=== PATIENT | female | born 1985 | race Caucasian/White ===

== ENCOUNTER 2017-05-15 20:47 | Emergency (ER) | payer MEDICAID ==
[~2017-05-15] VITALS: Ht 160 cm; Wt 75.0 kg
[~2017-05-15 20:47] MED LIST: GABA600T PO; HYDR-2374 PO; LAMO150 PO; PROM25TA10 PO
[2017-05-15 20:51] VITALS: BP 115/75; PULSE 77; RESP 16; TEMP 98.3; O2SAT 100
--- NOTE | 2017-05-15 21:59 | RADRPT ---
EXAM DATE/TIME: 05/15/2017 21:26 [facility] COMPARISON: No previous studies available for comparison. INDICATIONS : Cough, difficulty breathing for 3 days MEDICAL HISTORY : None. SURGICAL HISTORY : None. ENCOUNTER: Initial ACUITY: 3 days PAIN SCORE: 5/10 LOCATION: Right upper chest FINDINGS: PA and lateral views of the chest demonstrate the lungs to be symmetrically aerated without evidence of mass, infiltrate or effusion. The cardiomediastinal contours are unremarkable. Osseous structure s are intact. CONCLUSION: 1. No active disease. Mat Do MD on May 15, 2017 at 21:56 Board Certified Radiologist. This report was verified electronically.
--- NOTE | 2017-05-15 22:01 | PD ---
HPI Chief Complaint: Cold / Flu Symptoms Time Seen by Provider: 22:01 Travel History International Travel<30 days: No Contact w/Intl Traveler<30days: No Traveled to known affect area: No History of Present Illness HPI 31-year-old female resents emergency department for evaluation of cough and chest congestion. Patient symptoms started 3 weeks ago. Over the last 2-3 days , symptoms have gotten worse and settled in her chest. She reports a more coarse cough and shortness of breath. She states she's been unable to smoke or tobacco cigarettes is often because of this cough. Denies any significant chest pain. Denies any recent travel or history of PE or DVT. She denies any nausea vomiting. No fever or chills at this time. No other symptoms to report. PFSH Past Medical History Asthma: No Blood Disorders: No Anxiety: Yes Depression: No Heart Rhythm Problems: No Cancer: No Cardiovascular Problems: No High Cholesterol: No Chemotherapy: No Chest Pain: No Congestive Heart Failure: No COPD: No Cerebrovascular Accident: No Diabetes: No Endocrine: No Gastrointestinal Disorders: No Genitourinary: Yes (OCCASIONAL KIDNEY STONES) Headaches: No Immune Disorder: No Implanted Vascular Access Dvce: No Kidney Stones: Yes Musculoskeletal: No Neurologic: Yes (EPILEPTIC) Psychiatric: Yes Reproductive: No Respiratory: No Migraines: No Radiation Therapy: No Renal Failure: No Seizures: Yes Sleep Apnea: No Thyroid Disease: No Ulcer: Yes (EPILESPY) ?: Not : 7 Para: 2 Miscarriage: 1 Ectopic : Yes (3) Past Surgical History Other Surgery: Yes Social History Alcohol Use: No Tobacco Use: No Substance Use: No Allergies-Medications (Allergen,Severity, Reaction): Coded Allergies: *MDRO Multi-Drug Resistant Organism (Verified Adverse Reaction, Unknown, ) MRSA PCR Screen negative 08/04/14 and 09/01/14. Cleared per Infection Control Reported Meds & Prescriptions Reported Meds & Active Scripts Active Proair Hfa 8.5 GM Inh (Albuterol Sulfate) 90 Mcg/Act Aer 2 Puff INH Q4HR PRN 108 mcg/actuation Prednisone 50 Mg Tab 50 Mg PO DAILY 5 Days Zithromax Z-Anthony (Azithromycin) 250 Mg Dspk 250 Mg PO DIRECTED 500 MG (2 tabs) day 1, then 1 tab days 2-5. Reported Tramadol (Tramadol HCl) 50 Mg Tab 50 Mg PO Q6H PRN Lamictal (Lamotrigine) 150 Mg Tab 150 Mg PO BID Gabapentin 600 Mg Tab 600 Mg PO TID Review of Systems Except as stated in HPI: all other systems reviewed are Neg Physical Exam Narrative GENERAL: Well-nourished female patient in no acute distress. SKIN: Focused skin assessment warm/dry. HEAD: Atraumatic. Normocephalic. EYES: Pupils equal and round. No scleral icterus. No injection or drainage. ENT: No nasal bleeding or discharge. Mucous membranes pink and moist. NECK: Trachea midline. No JVD. CARDIOVASCULAR: Regular rate and rhythm. No murmur appreciated. RESPIRATORY: No accessory muscle use. Coarse but clear to cough. Breath sounds equal bilaterally. GASTROINTESTINAL: Abdomen soft, non-tender, nondistended. Hepatic and splenic margins not palpable. MUSCULOSKELETAL: No obvious deformities. No clubbing. No cyanosis. No edema. NEUROLOGICAL: Awake and alert. No obvious cranial nerve deficits. Motor grossly within normal limits. Normal speech. PSYCHIATRIC: Appropriate mood and affect; insight and judgment normal. Data Data Last Documented VS Vital Signs Date Time Temp Pulse Resp B/P (MAP) Pulse Ox O2 Delivery O2 Flow Rate FiO2 05/15/17 22:22 05/15/17 22:07 77 18 99 Room Air 05/15/17 20:51 98.3 Orders Orders Chest, Pa & Lat (05/15/17 ) Ed Discharge Order (05/15/17 22:07) MDM Medical Decision Making Medical Screen Exam Complete: Yes Emergency Medical Condition: Yes Medical Record Reviewed: Yes Differential Diagnosis Pneumonia versus influenza versus common cold versus bronchitis Narrative Course 31-year-old female presents to emergency department for evaluation. Patient has had cough and chest congestion now for 3 weeks that is progressively worsening. Her vital signs are stable here. She does have coarse breath sounds but this could be expected with long-standing tobacco smoking history. Due to the duration of her symptoms, patient will be started on azithromycin Z- Anthony. She is encouraged to follow-up with a primary care provider and return immediately with any acute worsening symptoms. Diagnosis Primary Impression: URI (upper respiratory infection) Qualified Codes: J06.9 - Acute upper respiratory infection, unspecified Referrals: Primary Care Physician Patient Instructions: General Instructions, Upper Respiratory Infection (ED) Departure Forms: Tests/Procedures, Work Release Enter return to work date: May 17, 2017 Additional Instructions: Humidified air may help to alleviate symptoms Follow up with a primary care provider Stop smoking tobacco cigarettes Return to ED with acute worsening of symptoms Med/Other Pt SpecificInfo: Prescription(s) given Scripts Albuterol 8.5 GM Inh (Proair Hfa 8.5 GM Inh) 90 Mcg/Act Aer 2 PUFF INH Q4HR Y for SHORTNESS OF BREATH, #1 INHALER 0 Refills 108 mcg/actuation Prov: Sil Ngo 05/15/17 Prednisone (Prednisone) 50 Mg Tab 50 MG PO DAILY for 5 Days, #5 TAB 0 Refills Prov: Sil Ngo 05/15/17 Azithromycin (Zithromax Z-Anthony) 250 Mg Dspk 250 MG PO DIRECTED for Infection, #1 DSPK 0 Refills 500 MG (2 tabs) day 1, then 1 tab days 2-5. Prov: Sil Ngo 05/15/17 Disposition: 01 DISCHARGE HOME Condition: Stable Sil Ngo May 15, 2017 22:01
[2017-05-15] MEDS ORDERED: TRAM50TA PO (22:05)
[2017-05-15 22:07] VITALS: PULSE 77; RESP 18; O2SAT 99
[2017-05-15] MEDS ORDERED: ZITHTAB PO (22:09)
[2017-05-15] MEDS ORDERED: PRED50 PO (22:09)
[2017-05-15] MEDS ORDERED: ALBUAER3 INH (22:09)
[2017-05-20] MEDS ORDERED: OXYC2.5T PO (11:42)
== END 2017-05-15 22:23 | disposition home or self-care (01) ==
LOC: NEPD 20:47
DX: J06.9 Acute upper respiratory infection, unspecified (principal); F41.9 Anxiety disorder, unspecified; G40.909 Epilepsy, unspecified, not intractable, without status epilepticus; Z79.899 Other long term (current) drug therapy
CPT/HCPCS: 71046; 99284

== ENCOUNTER 2017-05-23 20:14 | Emergency (ER) | payer MEDICAID ==
[~2017-05-23] VITALS: Ht 160 cm; Wt 75.0 kg
[~2017-05-23 20:14] MED LIST changes: +ALBUAER3 INH; -HYDR-2374 PO; +OXYC2.5T PO; +PRED50 PO; -PROM25TA10 PO; +TRAM50TA PO
[2017-05-23 20:15] VITALS: BP 113/86; PULSE 119; RESP 16; TEMP 98.3; O2SAT 97
[2017-05-24] MEDS ORDERED: LEVA500T33 PO (01:04)
--- NOTE | 2017-05-24 01:04 | PD ---
HPI Chief Complaint: Cold / Flu Symptoms Time Seen by Provider: 00:44 Travel History International Travel<30 days: No Contact w/Intl Traveler<30days: No Traveled to known affect area: No History of Present Illness HPI Patient is a 31-year-old female presents emergency department for evaluation of fever cough and congestion. She is a smoker, she states that she had finished a course of azithromycin and steroids for bronchitis and was not doing any better after that so she decided to come in and be seen. She also endorses some body aches which have been present for at least the past week, symptoms gradually worsening, not relieved by above medications, context a smoker, duration 7 days. PFSH Past Medical History Asthma: No Blood Disorders: No Anxiety: Yes Depression: No Heart Rhythm Problems: No Cancer: No Cardiovascular Problems: No High Cholesterol: No Chemotherapy: No Chest Pain: No Congestive Heart Failure: No COPD: No Cerebrovascular Accident: No Diabetes: No Endocrine: No Gastrointestinal Disorders: No Genitourinary: Yes (OCCASIONAL KIDNEY STONES) Headaches: No Immune Disorder: No Implanted Vascular Access Dvce: No Kidney Stones: Yes Musculoskeletal: No Neurologic: Yes (EPILEPTIC) Psychiatric: Yes Reproductive: No Respiratory: No Migraines: No Radiation Therapy: No Renal Failure: No Seizures: Yes Sleep Apnea: No Thyroid Disease: No Ulcer: Yes (EPILESPY) ?: Not LMP: "IT'S BEEN LIKE A YEAR" : 7 Para: 2 Miscarriage: 1 Ectopic : Yes (3) Tubal Ligation: Yes Past Surgical History Other Surgery: Yes (ureter stent placed, nephrostomy tube) Social History Alcohol Use: No Tobacco Use: Yes (1/2 PPD) Substance Use: No Allergies-Medications (Allergen,Severity, Reaction): Coded Allergies: *MDRO Multi-Drug Resistant Organism (Verified Adverse Reaction, Unknown, ) MRSA PCR Screen negative 08/04/14 and 09/01/14. Cleared per Infection Control Reported Meds & Prescriptions Reported Meds & Active Scripts Active Levaquin (Levofloxacin) 500 Mg Tablet 500 Mg PO DAILY 7 Days Oxycodon-Acetaminophen 2.5-325 (Oxycodone HCl/Acetaminophen) 2.5 Mg-325 Mg Tablet 5.325 Mg PO Q6HR PRN Proair Hfa 8.5 GM Inh (Albuterol Sulfate) 90 Mcg/Act Aer 2 Puff INH Q4HR PRN 108 mcg/actuation Prednisone 50 Mg Tab 50 Mg PO DAILY 5 Days Reported Tramadol (Tramadol HCl) 50 Mg Tab 50 Mg PO Q6H PRN Lamictal (Lamotrigine) 150 Mg Tab 150 Mg PO BID Gabapentin 600 Mg Tab 600 Mg PO TID Review of Systems Except as stated in HPI: all other systems reviewed are Neg Physical Exam Narrative GENERAL: Well-developed well-nourished no obvious distress SKIN: Focused skin assessment warm/dry. HEAD: Atraumatic. Normocephalic. EYES: Pupils equal and round. No scleral icterus. No injection or drainage. ENT: No nasal bleeding or discharge. Mucous membranes pink and moist. TMs clear bilaterally, oropharynx clear moist NECK: Trachea midline. No JVD. CARDIOVASCULAR: Regular rate and rhythm. No murmur appreciated. RESPIRATORY: No accessory muscle use. Clear to auscultation. Breath sounds equal bilaterally. GASTROINTESTINAL: Abdomen soft, non-tender, nondistended. Hepatic and splenic margins not palpable. MUSCULOSKELETAL: No obvious deformities. No clubbing. No cyanosis. No edema. NEUROLOGICAL: Awake and alert. No obvious cranial nerve deficits. Motor grossly within normal limits. Normal speech. PSYCHIATRIC: Appropriate mood and affect; insight and judgment normal. Data Data Last Documented VS Vital Signs Date Time Temp Pulse Resp B/P (MAP) Pulse Ox O2 Delivery O2 Flow Rate FiO2 05/24/17 01:24 05/23/17 20:15 98.3 119 16 97 Room Air Orders Orders Ed Discharge Order (05/24/17 01:03) MDM Medical Decision Making Medical Screen Exam Complete: Yes Emergency Medical Condition: Yes Differential Diagnosis URI, pneumonia, influenza Narrative Course Patient room to the emergency department, she appears well and in no obvious distress, given smoking history we will start on empiric Levaquin and she states that she did have a small pneumonia on her last chest x-ray, offered repeat chest x-ray today and she declined. Discussed symptomatic management and return to be criteria. Discussed smoking cessation. She is stable for discharge Diagnosis Primary Impression: URI (upper respiratory infection) Med/Other Pt SpecificInfo: Prescription(s) given Scripts Levofloxacin (Levaquin) 500 Mg Tablet 500 MG PO DAILY for Infection for 7 Days, #7 TAB 0 Refills Prov: Reji Yang MD 05/24/17 Disposition: 01 DISCHARGE HOME Condition: Stable Reji Yang MD May 24, 2017 01:04
== END 2017-05-24 01:30 | disposition home or self-care (01) ==
LOC: NEPE 20:14
DX: J06.9 Acute upper respiratory infection, unspecified (principal); F41.9 Anxiety disorder, unspecified; G40.909 Epilepsy, unspecified, not intractable, without status epilepticus; F17.200 Nicotine dependence, unspecified, uncomplicated
CPT/HCPCS: 99283

== ENCOUNTER 2017-06-04 16:05 | Emergency (ER) | payer MEDICAID ==
[~2017-06-04] VITALS: Ht 160 cm; Wt 75.0 kg
[~2017-06-04 16:05] MED LIST changes: +LEVA500T33 PO
[2017-06-04 16:06] VITALS: BP 124/80; PULSE 92; RESP 18; TEMP 99; O2SAT 100
--- NOTE | 2017-06-04 16:51 | RADRPT ---
EXAM DATE/TIME: 06/04/2017 16:32 [facility] COMPARISON: No previous studies available for comparison. INDICATIONS : Right sided pain due to fall while having seizure. RADIATION DOSE: 36.27 CTDIvol (mGy) MEDICAL HISTORY : Seizures. SURGICAL HISTORY : Tubal ligation. ENCOUNTER: Initial ACUITY: 2 days PAIN SCALE: 5/10 LOCATION: Right cranial TECHNIQUE: Multiple contiguous axial images were obtained of the head. Using automated exposure control and adj ustment of the mA and/or kV according to patient size, radiation dose was kept as low as reasonably a chievable to obtain optimal diagnostic quality images. DICOM format image data is available electro nically for review and comparison. FINDINGS: CEREBRUM: The ventricles are normal for age. No evidence of midline shift, mass lesion, hemorrhage or acute in farction. No extra-axial fluid collections are seen. POSTERIOR FOSSA: The cerebellum and brainstem are intact. The 4th ventricle is midline. The cerebellopontine angle i s unremarkable. EXTRACRANIAL: The visualized portion of the orbits is intact. SKULL: The calvaria is intact. No evidence of skull fracture. CONCLUSION: Normal examination. Tylor Machado Jr., MD on June 04, 2017 at 16:48 Board Certified Radiologist. This report was verified electronically.
--- NOTE | 2017-06-04 16:52 | RADRPT ---
EXAM DATE/TIME: 06/04/2017 16:32 [facility] COMPARISON: No previous studies available for comparison. INDICATIONS : Right sided facial pain due to fall. RADIATION DOSE: 62.18 CTDIvol (mGy) MEDICAL HISTORY : Seizures. SURGICAL HISTORY : Tubal ligation. ENCOUNTER: Initial ACUITY: 2 days PAIN SCORE: 5/10 LOCATION: Right orbit and facial region. TECHNIQUE: Volumetric scanning of the facial bones was performed. Using automated exposure control and adjustme nt of the mA and/or kV according to patient size, radiation dose was kept as low as reasonably achiev able to obtain optimal diagnostic quality images. DICOM format image data is available electronicKindful y for review and comparison. FINDINGS: ORBITS: The orbital and infraorbital osseous structures are intact. The retroconal structures have a normal configuration. No radiopaque foreign bodies are seen. NASAL BONE: The nasal bone and maxillary spine are intact ZYGOMATIC ARCHES: Symmetric without evidence of fracture. SINUSES: The maxillary, ethmoid and frontal sinuses are intact. No air-fluid levels seen. NASAL CAVITY: The nasal septum is intact and midline. The lacrimal ducts are intact. SOFT TISSUES: No radiopaque foreign bodies seen. No soft-tissue swelling is seen. INTRACRANIAL: No intracranial air seen. CRIBIFORM PLATE: Grossly intact. CONCLUSION: Normal examination. Tylor Machado Jr., MD on June 04, 2017 at 16:48 Board Certified Radiologist. This report was verified electronically.
[2017-06-04 17:01] LABS: AUTOMATED NEUTROPHIL # 6.3 TH/MM3 (1.8-7.7); BASOPHIL % 0.5 % (0.0-2.0); EOSINOPHIL # 0.1 TH/MM3 (0-0.4); EOSINOPHIL % 1.5 % (0.0-4.0); HEMATOCRIT 38.6 % (35.0-46.0); HEMOGLOBIN 13.4 GM/DL (11.6-15.3); LYMPH % 27.2 % (9.0-44.0); LYMPHOCYTE # 2.5 TH/MM3 (1.0-4.8); MEAN CELL VOLUME 92.3 FL (80.0-100.0); MEAN CORPUSCULAR HGB CONC 34.7 % (32.0-36.0); MEAN PLATELET VOLUME 8.5 FL (7.0-11.0); MONO % 3.7 % (0.0-8.0); MONOCYTE # 0.3 TH/MM3 (0-0.9); NEUT % 67.1 % (16.0-70.0); PLATELET COUNT 284 TH/MM3 (150-450); RED BLOOD COUNT 4.18 MIL/MM3 (4.00-5.30); RED CELL DISTRIBUTION WIDTH 12.8 % (11.6-17.2); WHITE BLOOD COUNT 9.4 TH/MM3 (4.0-11.0)
--- NOTE | 2017-06-04 17:22 | PD ---
HPI Chief Complaint: Seizure Time Seen by Provider: 17:16 Travel History International Travel<30 days: No Contact w/Intl Traveler<30days: No Traveled to known affect area: No History of Present Illness HPI 31-year-old female with history of seizure disorder here for evaluation of right head and facial pain after having 2 seizures, one last night, and one again today. She is on gabapentin and Lamictal for her seizures. States that she struck her head and face during the seizures. She had some vomiting yesterday evening. Pain is moderate to severe, constant, worse with movements. No visual changes. No paresthesias or motor deficits. She had the flu about 2 weeks ago. Currently no fevers. PFSH Past Medical History Asthma: No Blood Disorders: No Anxiety: Yes Depression: No Heart Rhythm Problems: No Cancer: No Cardiovascular Problems: No High Cholesterol: No Chemotherapy: No Chest Pain: No Congestive Heart Failure: No COPD: No Cerebrovascular Accident: No Diabetes: No Endocrine: No Gastrointestinal Disorders: No Genitourinary: Yes (OCCASIONAL KIDNEY STONES) Headaches: No Immune Disorder: No Implanted Vascular Access Dvce: No Kidney Stones: Yes Musculoskeletal: No Neurologic: Yes (EPILEPTIC) Psychiatric: Yes Reproductive: No Respiratory: No Migraines: No Radiation Therapy: No Renal Failure: No Seizures: Yes Sleep Apnea: No Thyroid Disease: No Ulcer: Yes (EPILESPY) : 7 Para: 2 Miscarriage: 1 Ectopic : Yes (3) Tubal Ligation: Yes Past Surgical History Other Surgery: Yes (ureter stent placed, nephrostomy tube) Social History Alcohol Use: No Tobacco Use: Yes (1/2 PPD) Substance Use: No Allergies-Medications (Allergen,Severity, Reaction): Coded Allergies: *MDRO Multi-Drug Resistant Organism (Verified Adverse Reaction, Unknown, ) MRSA PCR Screen negative 08/04/14 and 09/01/14. Cleared per Infection Control Reported Meds & Prescriptions Reported Meds & Active Scripts Active Proair Hfa 8.5 GM Inh (Albuterol Sulfate) 90 Mcg/Act Aer 2 Puff INH Q4HR PRN 108 mcg/actuation Reported Lamictal (Lamotrigine) 150 Mg Tab 150 Mg PO BID Gabapentin 600 Mg Tab 600 Mg PO TID Review of Systems Except as stated in HPI: all other systems reviewed are Neg Physical Exam Narrative GENERAL: Well-developed, well-nourished, awake, alert, no apparent distress. SKIN: Focused skin assessment warm/dry. HEAD: Moderate right forehead, face, and periorbital edema. Normocephalic. EYES: Pupils equal, round, 3 mm, reactive to light. EOMI. No scleral icterus. No injection or drainage. ENT: No nasal bleeding or discharge. Mucous membranes pink and moist. NECK: Trachea midline. No JVD. CARDIOVASCULAR: Regular rate and rhythm. RESPIRATORY: No accessory muscle use. Clear to auscultation. Breath sounds equal bilaterally. GASTROINTESTINAL: Abdomen soft, non-tender, nondistended. MUSCULOSKELETAL: No obvious deformities. No clubbing. No cyanosis. No edema. NEUROLOGICAL: Awake and alert. No obvious cranial nerve deficits. Motor grossly within normal limits. Normal speech. PSYCHIATRIC: Appropriate mood and affect; insight and judgment normal. Data Data Last Documented VS Vital Signs Date Time Temp Pulse Resp B/P (MAP) Pulse Ox O2 Delivery O2 Flow Rate FiO2 06/04/17 16:06 99.0 92 18 124/80 (95) 100 Room Air Orders Orders Complete Blood Count With Diff (06/04/17 16:12) Basic Metabolic Panel (Bmp) (06/04/17 16:12) Magnesium (Mg) (06/04/17 16:12) Ct Facial Bones W/O Iv Cont (06/04/17 ) Ct Brain W/O Iv Contrast(Rout) (06/04/17 ) Acetamin-Hydrocod 325-5 Mg ([place] 5-325 (06/04/17 17:30) Ed Discharge Order (06/04/17 17:39) Labs Laboratory Tests Test 06/04/17 16:22 White Blood Count 9.4 TH/MM3 Red Blood Count 4.18 MIL/MM3 Hemoglobin 13.4 GM/DL Hematocrit 38.6 % Mean Corpuscular Volume 92.3 FL Mean Corpuscular Hemoglobin 32.0 PG Mean Corpuscular Hemoglobin Concent 34.7 % Red Cell Distribution Width 12.8 % Platelet Count 284 TH/MM3 Mean Platelet Volume 8.5 FL Neutrophils (%) (Auto) 67.1 % Lymphocytes (%) (Auto) 27.2 % Monocytes (%) (Auto) 3.7 % Eosinophils (%) (Auto) 1.5 % Basophils (%) (Auto) 0.5 % Neutrophils # (Auto) 6.3 TH/MM3 Lymphocytes # (Auto) 2.5 TH/MM3 Monocytes # (Auto) 0.3 TH/MM3 Eosinophils # (Auto) 0.1 TH/MM3 Basophils # (Auto) 0.0 TH/MM3 CBC Comment DIFF FINAL Differential Comment Blood Urea Nitrogen 10 MG/DL Creatinine 0.65 MG/DL Random Glucose 76 MG/DL Calcium Level 9.0 MG/DL Magnesium Level 2.2 MG/DL Sodium Level 137 MEQ/L Potassium Level 3.7 MEQ/L Chloride Level 102 MEQ/L Carbon Dioxide Level 29.4 MEQ/L Anion Gap 6 MEQ/L Estimat Glomerular Filtration Rate 107 ML/MIN MDM Medical Decision Making Medical Screen Exam Complete: Yes Emergency Medical Condition: Yes Differential Diagnosis Breakthrough seizure, intracranial abnormality, facial bone fracture, electrolyte abnormality Narrative Course Vital signs show heart rate 92, blood pressure 124/80, pulse ox 100% on room air , oral temp of 99F. CBC is unremarkable. BMP is unremarkable. CT head: Normal exam. CT facial bones: Normal exam. Patient was made aware of all findings per she is resting comfortably. She likely had a breakthrough seizure. She also admits to not taking her antiepileptic medications today. She is overall very well-appearing. She likely has a concussion as well. She is stable for discharge home with outpatient follow-up with a primary care physician this week. She states that she has a neurology appointment for the first week in June. She was advised on when to return to the emergency department. She verbalizes understanding and agreement with plan. Diagnosis Primary Impression: Breakthrough seizure Additional Impression: Closed head injury Qualified Codes: S09.90XA - Unspecified injury of head, initial encounter Referrals: Primary Care Physician 3 days Additional Instructions: Follow-up with a primary care physician this week. Follow-up with a neurologist as scheduled. Return to the emergency department for worsening symptoms or any other concerns. Scripts Gabapentin (Gabapentin) 800 Mg Tab 800 MG PO TID for 21 Days, #90 TAB 0 Refills Prov: Golden Jimenez MD 06/04/17 Disposition: 01 DISCHARGE HOME Condition: Stable Golden Jimenez MD Jun 04, 2017 17:22
[2017-06-04 17:27] LABS: BICARBONATE 29.4 MEQ/L (21.0-32.0); CREATININE 0.65 MG/DL (0.50-1.00); MAGNESIUM 2.2 MG/DL (1.5-2.5)
[2017-06-04] MEDS ORDERED: ACETAMINOPHEN/HYDROcodone 325 MG/5 MG TAB PO ONE (17:30)
[2017-06-04] MEDS ORDERED: GABA800T PO (17:43)
[2017-06-04 17:54] VITALS: BP 120/85; PULSE 85; RESP 16; O2SAT 100
== END 2017-06-04 18:08 | disposition home or self-care (01) ==
LOC: NEPD 16:05
DX: G40.909 Epilepsy, unspecified, not intractable, without status epilepticus (principal); S09.90XA Unspecified injury of head, initial encounter; F41.9 Anxiety disorder, unspecified; F17.210 Nicotine dependence, cigarettes, uncomplicated; W22.8XXA Striking against or struck by other objects, initial encounter; Z87.442 Personal history of urinary calculi; Z79.899 Other long term (current) drug therapy
CPT/HCPCS: 70450; 70486; 80048; 83735; 85025; 99284

== ENCOUNTER 2017-07-04 12:20 | Emergency (ER) | payer SELFPAY ==
[~2017-07-04] VITALS: Ht 160 cm; Wt 82.0 kg
[~2017-07-04 12:20] MED LIST changes: +GABA800T PO; -LEVA500T33 PO; -OXYC2.5T PO; -PRED50 PO; -TRAM50TA PO
[2017-07-04 12:35] VITALS: BP 121/63; PULSE 81; RESP 15; TEMP 98.3; O2SAT 100
[2017-07-04] MEDS ORDERED: ROBA500T PO (14:39)
[2017-07-04] MEDS ORDERED: PRED5TAB PO (14:39)
--- NOTE | 2017-07-04 14:39 | PD ---
HPI Chief Complaint: Injury Time Seen by Provider: 14:33 Travel History International Travel<30 days: No Contact w/Intl Traveler<30days: No Traveled to known affect area: No History of Present Illness HPI 31 old female presents emergency department complaining of right neck and left back pain with sciatica that worsened last night. 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 Says that she developed right neck pain that worsened last night, keeping her from sleeping well. Describes the pain as aching and tightness in her neck. Mild pain. Ibuprofen and naproxen alleviate her pain a little. She does have a h/o sciatica and feels that her left sciatica pain is exacerbated. Pain starts from her left SI joint and radiates behind her leg and into her lateral ankle. Denies numbness, tingling, loss of bowel or bladder function, saddle anesthesia. PFSH Past Medical History Asthma: No Blood Disorders: No Anxiety: Yes Depression: No Heart Rhythm Problems: No Cancer: No Cardiovascular Problems: No High Cholesterol: No Chemotherapy: No Chest Pain: No Congestive Heart Failure: No COPD: No Cerebrovascular Accident: No Diabetes: No Diminished Hearing: No Endocrine: No Gastrointestinal Disorders: No Genitourinary: Yes (OCCASIONAL KIDNEY STONES) Headaches: No Immune Disorder: No Implanted Vascular Access Dvce: No Kidney Stones: Yes Musculoskeletal: No Neurologic: Yes (EPILEPTIC) Psychiatric: Yes Reproductive: No Respiratory: No Migraines: No Radiation Therapy: No Renal Failure: No Seizures: Yes Sleep Apnea: No Thyroid Disease: No Ulcer: Yes (EPILESPY) Tetanus Vaccination: < 5 Years Influenza Vaccination: No ?: Not : 7 Para: 2 Miscarriage: 1 Ectopic : Yes (3) Ovarian Cysts: Yes Tubal Ligation: Yes Past Surgical History Gynecologic Surgery: Yes (ABLATION) Other Surgery: Yes (ureter stent placed, nephrostomy tube OUT) Social History Alcohol Use: No Tobacco Use: Yes (1/2 PPD) Substance Use: No Allergies-Medications (Allergen,Severity, Reaction): Coded Allergies: *MDRO Multi-Drug Resistant Organism (Verified Adverse Reaction, Unknown, ) MRSA PCR Screen negative 08/04/14 and 09/01/14. Cleared per Infection Control Reported Meds & Prescriptions Reported Meds & Active Scripts Active Prednisone 5 Mg Tab 5 Mg PO DAILY 7 Days Robaxin (Methocarbamol) 500 Mg Tab 500 Mg PO TID 5 Days Proair Hfa 8.5 GM Inh (Albuterol Sulfate) 90 Mcg/Act Aer 2 Puff INH Q4HR PRN 108 mcg/actuation Reported Lamictal (Lamotrigine) 150 Mg Tab 150 Mg PO BID Gabapentin 600 Mg Tab 600 Mg PO TID Review of Systems Except as stated in HPI: all other systems reviewed are Neg Physical Exam Narrative GENERAL: Well-nourished, well-developed patient. SKIN: Focused skin assessment warm/dry. HEAD: Normocephalic. EYES: No scleral icterus. No injection or drainage. NECK: Supple, trachea midline. No JVD or lymphadenopathy. CARDIOVASCULAR: Regular rate and rhythm without murmurs, gallops, or rubs. RESPIRATORY: Breath sounds equal bilaterally. No accessory muscle use. GASTROINTESTINAL: Abdomen soft, non-tender, nondistended. No CVA tenderness MUSCULOSKELETAL: No cyanosis, or edema. Tenderness palpation of the right trapezius with obvious tension BACK: No CVA tenderness. No rash. No point tenderness on palpation of the spine , mild TTP to the left sacroiliac joint, neurovascularly intact BACK: Nontender without obvious deformity. No CVA tenderness. Data Data Last Documented VS Vital Signs Date Time Temp Pulse Resp B/P (MAP) Pulse Ox O2 Delivery O2 Flow Rate FiO2 07/04/17 12:35 98.3 81 15 121/63 (82) 100 Orders Orders Methylprednisolone So Succ Inj (Solumedr (07/04/17 14:45) Ed Discharge Order (07/04/17 14:51) MDM Medical Decision Making Medical Screen Exam Complete: Yes Emergency Medical Condition: Yes Differential Diagnosis Muscle spasm, sciatica, fracture Narrative Course 31-year-old female presents emergency department with complaints of right neck pain and left sided exacerbation of sciatic pain that has worsened over the last 2 days after walking her horses. States that she was jolted by her horses several times as she was walking them and this may have caused her pain. Denies falls. Denies direct trauma. No red flag symptoms. Vital signs stable. Physical exam findings demonstrate tenderness to palpation of the right upper trapezius muscle and left SI joint. Neurovascularly intact. Solumedrol 125mg administered for sciatica pain. Pt took naproxen and ibuprofen this morning which did alleviate some pain but not all so will avoid NSAIDs here in the ED. Advised to use caution with taking these meds as they may cause kidney or GI problems. Pt will be discharged with robaxin and prednisone. Advised to return for worsening or persistent pain. Diagnosis Primary Impression: Muscle spasm Additional Impression: Sciatica Qualified Codes: M54.32 - Sciatica, left side Referrals: Primary Care Physician Additional Instructions: Take all medications as prescribed. Follow-up with primary care physician within 2-3 days. If her symptoms persist or worsen return to the emergency department immediately. Scripts Prednisone (Prednisone) 5 Mg Tab 5 MG PO DAILY for 7 Days, #7 TAB 0 Refills Prov: Ciera Jiménez 07/04/17 Methocarbamol (Robaxin) 500 Mg Tab 500 MG PO TID for Muscle Spasm for 5 Days, TAB 0 Refills Prov: Ciera Jiménez 07/04/17 Disposition: 01 DISCHARGE HOME Condition: Stable Ciera Jiménez Jul 04, 2017 14:39
[2017-07-04] MEDS ORDERED: methylPREDNISolone SOD SUCC 125 MG/2 ML VIAL IM ONE (14:45)
[2017-07-05] MEDS ORDERED: NAPR500T2 PO (00:46)
[2017-07-05] MEDS ORDERED: CEPH-460 PO (00:46)
[2017-07-05] MEDS ORDERED: PERC5TAB12 PO (00:46)
== END 2017-07-04 19:30 | disposition home or self-care (01) ==
LOC: NEPC 12:20
DX: M62.838 Other muscle spasm (principal); M54.32 Sciatica, left side; F41.9 Anxiety disorder, unspecified; G40.909 Epilepsy, unspecified, not intractable, without status epilepticus; F17.200 Nicotine dependence, unspecified, uncomplicated
CPT/HCPCS: 96372; 99283; J2930

== ENCOUNTER 2017-07-04 22:35 | Emergency (ER) | payer SELFPAY ==
[~2017-07-04] VITALS: Ht 160 cm; Wt 81.8 kg
[~2017-07-04 22:35] MED LIST changes: +PRED5TAB PO; +ROBA500T PO
[2017-07-04 22:40] VITALS: BP 123/75; PULSE 118; RESP 20; TEMP 98.6; O2SAT 98
[2017-07-04] MEDS ORDERED: MORPHINE SULFATE 4 MG/ML INJ IM ONE (23:30)
[2017-07-04] MEDS ORDERED: ONDANSETRON ODT 4 MG TAB PO ONE (23:30)
[2017-07-04] MEDS ORDERED: BUPIVACAINE HCL PF 0.25% 10 ML VIAL INFIL ONE (23:30)
[2017-07-04] MEDS ORDERED: TETANUS/DIPHTHERIA TOXOID PEDIATRIC 0.5 ML VIAL IM ONE (23:30)
[2017-07-04] MEDS ORDERED: LIDOCAINE HCL 1% 30 ML VIAL INFIL ONE (23:30)
[2017-07-04] MEDS ORDERED: BUPIVACAINE HCL PF 0.5% 10 ML VIAL ONE (23:33)
[2017-07-04] MEDS ORDERED: DIPHTH/TETANUS/ACEL PERTUSSIS (BOOSTER) 0.5 ML VIAL/PFS IM ONE (23:33)
--- NOTE | 2017-07-05 00:20 | RADRPT ---
EXAM DATE/TIME: 07/04/2017 23:40 [facility] COMPARISON: No previous studies available for comparison. INDICATIONS : Trauma to hand, severed fingertip of 3rd digit. MEDICAL HISTORY : Previous fractured metatarsals. SURGICAL HISTORY : None. ENCOUNTER: Initial ACUITY: 1 day PAIN SCORE: 5/10 LOCATION: Right upper extremity hand FINDINGS: Two view examination of the right hand demonstrates amputation injury to the tuft of the distal phala nx of the third digit. Possible old healed fracture deformities of the fourth and fifth metacarpals. Otherwise, osseous structures are intact. CONCLUSION: 1. Amputation injury to the tuft of the distal phalanx of the third digit. 2. Possible old healed fracture deformities of the fourth and fifth metacarpals. Yemi Marques MD on July 05, 2017 at 0:16 Board Certified Radiologist. This report was verified electronically.
[2017-07-05] MEDS ORDERED: CEPHALEXIN MONOHYDRATE 500 MG CAP PO ONE (00:45)
[2017-07-05] MEDS ORDERED: ACETAMINOPHEN/HYDROcodone 325 MG/5 MG TAB PO ONE (00:45)
[2017-07-05] MEDS ORDERED: ONDANSETRON HCL 4 MG/2 ML VIAL IV PUSH ONE (00:45)
[2017-07-05] MEDS ORDERED: ONDANSETRON ODT 4 MG TAB PO ONE (00:45)
[2017-07-05] MEDS ORDERED: PERC5TAB12 PO (00:46)
[2017-07-05] MEDS ORDERED: CEPH-460 PO (00:46)
[2017-07-05] MEDS ORDERED: NAPR500T2 PO (00:46)
--- NOTE | 2017-07-05 00:46 | PD ---
HPI Chief Complaint: Laceration/Skin Injury Time Seen by Provider: 22:51 Travel History International Travel<30 days: No Contact w/Intl Traveler<30days: No Traveled to known affect area: No History of Present Illness HPI 31-year-old woman, presents to the emergency department with right second digit fingertip amputation from a door. Happened just prior to arrival. No radiation. Pain is been moderate to severe, some associated nausea, no other complaints. History Past Medical History Narrative Medical Seizure disorder : 7 Para: 2 Social History Alcohol Use: No Tobacco Use: Yes (/2 PPD) Allergies-Medications (Allergen,Severity, Reaction): Coded Allergies: *MDRO Multi-Drug Resistant Organism (Verified Adverse Reaction, Unknown, ) MRSA PCR Screen negative 08/04/14 and 09/01/14. Cleared per Infection Control Reported Meds & Prescriptions Reported Meds & Active Scripts Active Prednisone 5 Mg Tab 5 Mg PO DAILY 7 Days Robaxin (Methocarbamol) 500 Mg Tab 500 Mg PO TID 5 Days Proair Hfa 8.5 GM Inh (Albuterol Sulfate) 90 Mcg/Act Aer 2 Puff INH Q4HR PRN 108 mcg/actuation Reported Lamictal (Lamotrigine) 150 Mg Tab 150 Mg PO BID Gabapentin 600 Mg Tab 600 Mg PO TID Review of Systems Except as stated in HPI: all other systems reviewed are Neg Physical Exam Narrative GENERAL: Well-appearing 31-year-old woman, no acute distress. SKIN: Warm and dry. CARDIOVASCULAR: Warm and well perfused. RESPIRATORY: Normal rate and effort. MUSCULOSKELETAL: Evaluation of the right hand reveals fingertip amputation of the distal third digit on the right hand, most of the nailbed is spared but the nail itself is been missing, the small laceration to the nailbed, there is no exposed bone that I can see. NEUROLOGICAL: Awake and alert. No gross deficits. Data Data Last Documented VS Vital Signs Date Time Temp Pulse Resp B/P (MAP) Pulse Ox O2 Delivery O2 Flow Rate FiO2 07/04/17 22:40 98.6 118 20 123/75 (91) 98 Orders Orders Morphine Inj (Morphine Inj) (07/04/17 23:30) Tetanus-Diphther Tox Peds Inj (Tetanus-D (07/04/17 23:30) Ondansetron Odt (Zofran Odt) (07/04/17 23:30) Lidocaine 1% Inj (Xylocaine 1% Inj) (07/04/17 23:30) Bupivacaine Pf 0.25% Inj (Marcaine Pf 0. (07/04/17 23:30) Bupivacaine Pf 0.5% Inj (Marcaine Pf 0.5 (07/04/17 23:33) Gpav-Vnt-Bawfhu (Booster) Inj (Boostrix (07/04/17 23:33) Hand, Limited (2vws) (07/04/17 23:39) Cephalexin (Keflex) (07/05/17 00:45) Ondansetron Inj (Zofran Inj) (07/05/17 00:45) Acetamin-Hydrocod 325-5 Mg (Wallace 5-325 (07/05/17 00:45) MDM Medical Decision Making Medical Screen Exam Complete: Yes Emergency Medical Condition: Yes Interpretation(s) Right hand x-ray: Amputation of the tuft of the third digit distal phalanx. Differential Diagnosis Finger amputation, fracture, infection, other Narrative Course Medical decision making 4-year-old woman fingertip amputation on the right third digit, got the top, no exposed bone however, was repaired primarily. Procedures Procedure Narrative Digital block was performed with combination of 1% lidocaine and quarter percent Marcaine. Patient tolerated well. Fingertip amputation repair: Digital block was performed. He was irrigated with sterile saline and Betadine. I do not see any exposed bone. The nail bed laceration was repaired with 6-0 Vicryl. A larger 3-0 Prolene was used to pinch the soft tissues together to ensure adequate bone coverage. A sausage wrapper from iodoform was folded, and sewed to hold the eponychial fold open. Iodoform dressing was placed over all the exposed soft tissue. Copious antibiotic ointment was applied to the distal fingertip. Bulky dressing was applied. Diagnosis Primary Impression: Fingertip amputation Referrals: Malini Arias MD 3 days Patient Instructions: General Instructions Additional Instructions: Take Naprosyn as prescribed. Keep arm elevated to reduce pain. Take Percocet as needed for severe pain. Take antibiotics as prescribed. Follow-up with Dr. Arias in 3-5 days. Change dressing after 24 hours. He can leave the yellow iodoform dressing in place. Using copious amount of antibiotic ointment and apply through the yellow iodoform dressing. re-apply a bulky soft tissue dressing. Return to the emergency department for any worsening pain, swelling, drainage, or any other new or worsening symptoms. Med/Other Pt SpecificInfo: Prescription(s) given Scripts Naproxen (Naproxen) 500 Mg Tab 500 MG PO BID, #20 TAB 0 Refills Prov: Curly Shukla MD 07/05/17 Oxycodone-Acetaminophen (Percocet) 5-325 mg Tab 1-2 TAB PO Q6H Y for PAIN, #21 TAB 0 Refills Prov: Curly Shukla MD 07/05/17 Cephalexin (Keflex) 500 Mg Cap 500 MG PO Q8H for Infection, #30 CAP 0 Refills Prov: Curly Shukla MD 07/05/17 Disposition: 01 DISCHARGE HOME Condition: Stable Curly Shukla MD Jul 05, 2017 00:46
== END 2017-07-05 00:50 | disposition home or self-care (01) ==
LOC: NEPD 22:35
DX: S61.302A Unspecified open wound of right middle finger with damage to nail, initial encounter (principal); W23.0XXA Caught, crushed, jammed, or pinched between moving objects, initial encounter; G40.909 Epilepsy, unspecified, not intractable, without status epilepticus; F17.200 Nicotine dependence, unspecified, uncomplicated; Z23 Encounter for immunization
CPT/HCPCS: 11760; 73120; 90471; 90702; 90715; 96372; 99283; J2270

== ENCOUNTER 2017-09-07 12:15 | Emergency (ER) | payer MEDICAID, OTHER ==
[~2017-09-07] VITALS: Ht 160 cm; Wt 75.0 kg
[~2017-09-07 12:15] MED LIST changes: +CEPH-460 PO; -GABA800T PO; +NAPR500T2 PO; +PERC5TAB12 PO
[2017-09-07 12:20] VITALS: BP 119/65; PULSE 84; RESP 16; TEMP 98.9; O2SAT 100
[2017-09-07] MEDS ORDERED: ZOFR4TAB3 SL (12:53)
--- NOTE | 2017-09-07 12:54 | PD ---
HPI Chief Complaint: Injury Time Seen by Provider: 12:25 Travel History International Travel<30 days: No Contact w/Intl Traveler<30days: No Traveled to known affect area: No History of Present Illness HPI 31-year-old female presents to the emergency department with complaint of right lower leg pain just above her ankle 3 days. Denies injury. Denies paresthesias, loss of sensation, decreased range of motion, decreased strength to the affected extremity. Reports vomiting this morning. Denies fevers. Denies history of DVT/PE. Denies recent surgeries or travel. 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 Rates pain 6/10. Says the pain is constant. Worse with ambulation and palpation to the lower leg. Has tried taking ibuprofen, tramadol, using an Gurjit bandage for compression. Tramadol decreased pain. Primary care provider is Dr. Dennis. History of epilepsy. No known allergies. Has no other medical complaints. No other modifying factors or associated signs and symptoms. PFSH Past Medical History Asthma: No Blood Disorders: No Anxiety: Yes Depression: No Heart Rhythm Problems: No Cancer: No Cardiovascular Problems: No High Cholesterol: No Chemotherapy: No Chest Pain: No Congestive Heart Failure: No COPD: No Cerebrovascular Accident: No Diabetes: No Diminished Hearing: No Endocrine: No Gastrointestinal Disorders: No Genitourinary: Yes (OCCASIONAL KIDNEY STONES) Headaches: No Hypertension: No Immune Disorder: No Implanted Vascular Access Dvce: No Kidney Stones: Yes Musculoskeletal: No Neurologic: Yes (EPILEPTIC) Psychiatric: Yes Reproductive: No Respiratory: No Migraines: No Radiation Therapy: No Renal Failure: No Seizures: Yes Sleep Apnea: No Thyroid Disease: No Ulcer: Yes (EPILESPY) ?: Not : 7 Para: 2 Miscarriage: 1 Ectopic : Yes (3) Ovarian Cysts: Yes Tubal Ligation: Yes Past Surgical History Gynecologic Surgery: Yes (ABLATION) Other Surgery: Yes (ureter stent placed, nephrostomy tube OUT) Social History Alcohol Use: No Tobacco Use: Yes (1/2 PPD) Substance Use: No Allergies-Medications (Allergen,Severity, Reaction): Coded Allergies: *MDRO Multi-Drug Resistant Organism (Verified Adverse Reaction, Unknown, ) MRSA PCR Screen negative 08/04/14 and 09/01/14. Cleared per Infection Control Reported Meds & Prescriptions Reported Meds & Active Scripts Active Ibuprofen 800 Mg Tab 800 Mg PO Q6HR PRN Zofran Odt (Ondansetron Odt) 4 Mg Tab 4 Mg SL Q8HR PRN Reported Lamictal (Lamotrigine) 150 Mg Tab 150 Mg PO BID Gabapentin 600 Mg Tab 800 Mg PO TID Review of Systems Except as stated in HPI: all other systems reviewed are Neg Physical Exam Narrative GENERAL: Well-nourished, well-developed female patient, in no acute distress SKIN: Warm and dry. HEAD: Atraumatic. Normocephalic. EYES: Pupils equal and round. No scleral icterus. No injection or drainage. ENT: Mucosa pink and moist. Airway patent. NECK: Trachea midline. CARDIOVASCULAR: Regular rate. RESPIRATORY: No accessory muscle use. GASTROINTESTINAL: Flat. MUSCULOSKELETAL: Right lower leg to the medial aspect, just above the ankle with tenderness on palpation; the right lower leg is without any erythema, edema , ecchymosis, lymphangitis, wounds; no calf pain on palpation; 2+ pedal pulse; sensory intact. Patient is ambulatory on the affected extremity with a normal gait. No obvious deformities. No clubbing. No cyanosis. No edema. NEUROLOGICAL: Awake and alert. Oriented 3. No obvious cranial nerve deficits. Motor grossly within normal limits. Normal speech. PSYCHIATRIC: Appropriate mood and affect; insight and judgment normal. Data Data Last Documented VS Vital Signs Date Time Temp Pulse Resp B/P (MAP) Pulse Ox O2 Delivery O2 Flow Rate FiO2 09/07/17 12:20 98.9 84 16 119/65 (83) 100 Orders Orders Ed Discharge Order (09/07/17 12:58) [facility] Medical Decision Making Medical Screen Exam Complete: Yes Emergency Medical Condition: Yes Medical Record Reviewed: Yes Differential Diagnosis Muscle strain, leg pain, less likely fracture or DVT Narrative Course 31-year-old female with right lower leg pain. Denies known injury. Right lower extremity is supple nontender with 2+ pedal pulse and sensory intact without erythema or edema. No open wounds. No lymphangitis. Is ambulatory on the affected extremity. Patient did have some vomiting this morning. She is afebrile and nontoxic-appearing. She denies fevers. Exam of the right lower leg is unremarkable. I discussed the patient with my attending physician and she recommended for the patient to follow-up with her primary care provider and provided prescription for some Zofran. Zofran and ibuprofen prescribed for home. Instructed patient to follow up with primary care provider. Patient verbalizes understanding and agreement with treatment plan. Patient is medically cleared and stable for discharge. Discussed reasons to return to the emergency department. Patient agrees with treatment plan. The patients vital signs are stable and the patient is stable for outpatient follow-up and treatment. Patient discharged home, stable and in no acute distress. 1314: Patient was requesting to see Dr. Ly. Dr. Ly went in to see the patient and the patient started cussing at her using the F word. The patient was escorted out by security. Diagnosis Primary Impression: Right leg pain Referrals: Primary Care Physician Patient Instructions: General Instructions, Leg Pain (ED) Additional Instructions: Tylenol or ibuprofen as directed and as needed for pain and inflammation Rest, ice, compress, and elevate extremity to decrease pain and inflammation Gurjit bandage as needed for compression and support Avoid aggravating activity; increase activity as tolerated Follow-up with primary care provider Return to the emergency department immediately with worsening of symptoms Med/Other Pt SpecificInfo: Prescription(s) given Scripts Ibuprofen (Ibuprofen) 800 Mg Tab 800 MG PO Q6HR Y for PAIN, #30 TAB 0 Refills Prov: Johnna English 09/07/17 Ondansetron Odt (Zofran Odt) 4 Mg Tab 4 MG SL Q8HR Y for Nausea/Vomiting, #10 TAB 0 Refills Prov: Johnna English 09/07/17 Disposition: 01 DISCHARGE HOME Condition: Stable Johnna English September 07, 2017 12:54
[2017-09-07] MEDS ORDERED: IBUP1TAB7 PO (12:59)
--- NOTE | 2017-09-07 13:20 | PD ---
Physical Exam Date Seen by Provider: September 07, 2017 Narrative I was asked to see this patient by the nurse. She had initially been seen by the [facility]. The patient presented with atraumatic right leg pain. She was not satisfied with the fact that she did not receive any studies while here. The patient was noted to walk-in and walk out without any difficulty at all. No limp. Data Data Last Documented VS Vital Signs Date Time Temp Pulse Resp B/P (MAP) Pulse Ox O2 Delivery O2 Flow Rate FiO2 09/07/17 12:20 98.9 84 16 119/65 (83) 100 Orders Orders Ed Discharge Order (09/07/17 12:58) MDM Supervised Visit with RENE: Yes Narrative Course I, Dr. Ly, have reviewed the advance practice practitioner's documentation and am in agreement, met with the patient face to face, made the diagnosis, and the medical decision making was done by me. *My assessment and Findings: I went into see this patient but she was talking on the telephone. I told her that I would see her after she ended her conversation. She declined stating that she was talking to her mother. She then started cursing at me loudly. The patient was subsequently discharged and escorted out of the department by the police. Please see Johnna English NP's note for results of laboratory and radiographic evaluation, ED course, final diagnosis and disposition Diagnosis Primary Impression: Right leg pain Referrals: Primary Care Physician Patient Instructions: General Instructions, Leg Pain (ED) Departure Forms: Tests/Procedures Additional Instruction: Tylenol or ibuprofen as directed and as needed for pain and inflammation Rest, ice, compress, and elevate extremity to decrease pain and inflammation Gurjit bandage as needed for compression and support Avoid aggravating activity; increase activity as tolerated Follow-up with primary care provider Return to the emergency department immediately with worsening of symptoms Scripts Ibuprofen (Ibuprofen) 800 Mg Tab 800 MG PO Q6HR Y for PAIN, #30 TAB 0 Refills Prov: Johnna English 09/07/17 Ondansetron Odt (Zofran Odt) 4 Mg Tab 4 MG SL Q8HR Y for Nausea/Vomiting, #10 TAB 0 Refills Prov: Johnna EnglishP 09/07/17 Disposition: 01 DISCHARGE HOME Condition: Stable Faith Ly MD September 07, 2017 13:20
== END 2017-09-07 13:21 | disposition home or self-care (01) ==
LOC: NEPD 12:15
DX: M79.661 Pain in right lower leg (principal); R11.10 Vomiting, unspecified; G40.909 Epilepsy, unspecified, not intractable, without status epilepticus; F17.200 Nicotine dependence, unspecified, uncomplicated; Z87.442 Personal history of urinary calculi; Z86.59 Personal history of other mental and behavioral disorders
CPT/HCPCS: 99283